=== PATIENT | female | born 1995 | race Caucasian/White ===

== ENCOUNTER 2017-11-09 23:35 | Emergency (ER) | payer OTHER, SELFPAY ==
[2017-11-09 23:35] VITALS: BP 131/98; PULSE 101; RESP 18; TEMP 36.9; O2SAT 100; BMI 22.8
[2017-11-10] VITALS (8 sets, daily range): BP systolic 100–132; BP diastolic 78–83; PULSE 72–101; RESP 14–20; O2SAT 96–100
[2017-11-10 00:15] LABS: Absolute Lymphocyte Count 2.09 X10^3/ul (0.83-4.51); Absolute Neutrophil Count 5.5 X10^3/uL (2.0-7.7); Basophil# 0.02 X10^3/uL; Basophil% 0.2 % (0-1); Eosinophil# 0.08 X10^3/uL; Eosinophils% 0.9 % (0-5); Hematocrit 38.2 % (37-47); Hemoglobin 13.4 g/dl (12.0-15.0); Lymphocyte # 2.09 X10^3/ul (4.0); Lymphocyte % 24.7 % (19-41); Mean Corp Hgb Conc 35.1 g/gl (32-36); Mean Corpuscular Hgb 33.3 pg (27.0-32.0); Mean Corpuscular Volume 94.8 fL (81-99); Mean Platelet Vol. 9.3 fl (6.2-12.0); Monocyte# 0.75 X10^3/uL; Monocyte% 8.9 % (0-10); Neutrophil # 5.51 X10^3/uL (2.7-7.7); Neutrophil % 65.2 % (47-70); Platelet Count 327 K/mm3 (150-450); RBC Distribution Width CV 11.9 % (11.6-14.6); RBC Distribution Width SD 40.8 fl (35.1-43.9); Red Blood Count 4.03 M/mm3 (4.2-5.4); White Blood Count 8.5 K/mm3 (4.4-11.0)
[2017-11-10 00:16] LABS: POSITIVE COUNT NO; POSITIVE DIFFERENTIAL NO; POSITIVE MORPHOLOGY NO
--- NOTE | 2017-11-10 00:24 | ED.RN ---
PT STATES I HAVE THOUGHT ABOUT CUTTING MYSELF. I HAVE ALSO THOUGHT ABOUT TAKING ONE OF MY BOYFRIEND'S GUNS WITHOUT HIM KNOWING IT AND SHOOTING MYSELF. PLEASE DON'T TELL MY BOYFRIEND. DR KANG NOTIFIED OF THE SAME
[2017-11-10 00:29] LABS: Anion Gap 8 (5-15); BUN 9 mg/dL (7-18); BUN/Creat Ratio 10.8 RATIO (10-20); Calcium,Total 8.7 mg/dL (8.5-10.1); Chloride 108 mmol/L (98-107); Creatinine, Serum 0.83 mg/dL (0.55-1.02); EST Glomerular Filtration Rate 89 mL/min (>60); Est Glom Filt Rate - Afr Amer 108 mL/min (>60); Estimated Creatinine Clearance 97.84 ml/min; Glucose 135 mg/dL (74-106); Potassium 3.2 mmol/L (3.5-5.1); Sodium Level 140 mmol/L (136-145)
[2017-11-10 00:35] LABS: Pregnancy, Serum, hCG Quali. NEGATIVE Negative (0-9 Nonpreg)
[2017-11-10 01:07] LABS: Amphetamine Urine VISTA NEGATIVE (<1000 ng/mL); Barbiturate Urine VISTA NEGATIVE (< 200 ng/mL); Benzodiazepine Urine VISTA NEGATIVE (< 200 ng/mL); Cocaine Urine VISTA NEGATIVE (< 300 ng/mL); Ecstacy Urine VISTA NEGATIVE (< 500 ng/mL); Methadone Urine VISTA NEGATIVE (< 300 ng/mL); PCP Urine VISTA NEGATIVE (< 25 ng/mL); THC Urine VISTA NEGATIVE (< 50 ng/mL); Vista UDS pH Range 5
--- NOTE | 2017-11-10 01:48 | ED.VISSUMM ---
- ER Visit Summary Date of Service: 11/10/17 Chief Complaint: Suicidal ideation and anxiety History of Present Illness: The patient is a 22 F who initially just complain of anxiety to me. She states that over the past 2 months she has been increasingly anxious. She states that she has never sought any type of medical care medication for this so came here today. On pressing for history she does admit to suicidal thoughts at times and has thought about cutting herself. However to nursing staff while boyfriend was out of the room she had mentioned that she had thought of getting his gun and shooting herself. She denies any recent medical illness. Physical Examination: Afebrile heart rate 101 vitals otherwise normal Moist mucous membranes Heart regular rhythm tachycardia Lungs are clear Abdomen soft Alert Patient does endorse suicidal thoughts Test Results: CBC BMP notable for potassium 3.2 otherwise normal. negative. Tox and alcohol normal. Emergency Department Course and Treatment: Patient will be evaluated by crisis. Treatment Plan: [] Disposition: Pending crisis evaluation Impression: Suicidal ideation Anxiety This note was generated with [employer] dictation software. It may contain incorrect words, spelling, and punctuation that were not noted in review of the chart prior to signing ED Disposition - Plan for ED Patient: Chief Complaint: Suicidal Referrals: Care Physician,No Primary [Primary Care Provider] -
--- NOTE | 2017-11-10 07:12 | ED.RN ---
ADONAY IS HERE EVALUATING PATIENT.
--- NOTE | 2017-11-10 07:53 | ED.RN ---
ADONAY STATED SHE IS GOING TO TAKE [facility]THING TO [facility] AND THE NEXT SHIFT IS GOING TO WORK ON PLACEMENT.
--- NOTE | 2017-11-10 13:28 | ED.RN ---
CALLED NERY FROM CRISIS. HE STATED WE ARE WAITING FOR [facility] TO CALL US WITH ACCEPTANCE FOR PATIENT AND HE IS GOING TO CALL THEM TO CHECK ON IT AND HE WILL LET US KNOW.
== END 2017-11-10 14:35 ==
PROVIDERS: Emergency Medicine; Emergency Provider Emergency Medicine
DX: F41.9 Anxiety disorder, unspecified (principal); R45.851 Suicidal ideations; J45.909 Unspecified asthma, uncomplicated
CPT/HCPCS: 80048; 80307; 80320; 84703; 85025; 99284; G0480

== ENCOUNTER 2023-11-27 18:19 | Inpatient (IN) | payer OTHER, SELFPAY ==
[2023-11-27] VITALS (23 sets, daily range): BP systolic 119–148; BP diastolic 57–90; PULSE 100–127; RESP 16–18; TEMP 36.8–38.1; O2SAT 99–100
[2023-11-27] MEDS: Lactated Ringers 1,000 ML 999 ML IV (19:04)
[2023-11-27 19:05] LABS: Absolute Lymphocyte Count 2.53 X10^3/uL (0.83-4.51); Absolute Neutrophil Count 11.6 X10^3/uL (2.0-7.7); Basophil# 0.07 X10^3/uL; Basophil% 0.4 % (0-1); Eosinophil# 2.08 X10^3/uL; Eosinophils% 11.8 % (0-5); Hematocrit 38.2 % (37-47); Hemoglobin 12.8 g/dL (12.0-15.0); Lymphocyte # 2.53 X10^3/ul (0.83-4.51); Lymphocyte % 14.4 % (19-41); Mean Corp Hgb Conc 33.5 g/dL (32-36); Mean Corpuscular Hgb 32.7 pg (27.0-32.0); Mean Corpuscular Volume 97.7 fL (81-99); Mean Platelet Vol. 10.7 fl (6.2-12.0); Monocyte# 1.21 X10^3/uL; Monocyte% 6.9 % (0-10); NRBC Flagged by Analyzer 0 % (0-5); Neutrophil # 11.57 X10^3/uL (2.7-7.7); Neutrophil % 65.9 % (47-70); POSITIVE DIFFERENTIAL YES; Platelet Count 340 K/mm3 (150-450); RBC Distribution Width SD 43.6 fl (35.1-43.9); Red Blood Count 3.91 M/mm3 (4.2-5.4); White Blood Count 17.6 K/mm3 (4.4-11.0)
[2023-11-27 19:15] LABS: Differential Indicated SCAN CRITERIA MET
[2023-11-27 19:38] LABS: Syphilis Antibodies Non-reactive
[2023-11-27 19:53] LABS: Anisocytosis 1+; Macrocytosis 1+; Platelet Estimate ADEQUATE (ADEQ); Red Cell Morphology N CHROM NORMAL (NORM C&C)
[2023-11-27] MEDS: Lactated Ringers 1,000 ML 200 ML IV (20:04)
[2023-11-27] MEDS: fentaNYL-bupivacaine (epidural) 100 ML BAG EPIDURAL (20:08)
[2023-11-27] MEDS: Mag Hydrox/Al Hydrox/Simeth 30 ML UDC PO (22:29)
[2023-11-28] VITALS (27 sets, daily range): BP systolic 104–141; BP diastolic 53–90; PULSE 83–123; RESP 16–18; TEMP 36.8–37.8; O2SAT 97–100
--- NOTE | 2023-11-28 00:19 | PCM.HP.OB ---
HPI - General General Date of Admission: 11/27/23 HPI Narrative KHOI BROWN, is a 28 F who presents at 40w2d with KEVYN:11/26/23 in early labor. NST with late deceleration and decision for admission. Maternal Data Information KEVYN Calculator Estimated Delivery Date Method Current WG Current Estimate 11/26/23 Manual 40w 2d PFSH PFSH Medical History (Updated 11/28/23 @ 00:40 by Paola Bonilla CNM) Cervical polyp Asthma Depression Anxiety Home Medications ?Medication ?Instructions ?Recorded ?Last Taken ?Type albuterol sulfate 90 mcg/actuation 1 puff inhalation Q6H PRN PRN Sob 11/09/17 11/23/23 History aerosol inhaler (Ventolin HFA) &/Or Wheezing aspirin 81 mg tablet,delayed 81 mg PO DAILY prevent pre-e 11/27/23 11/27/23 History release (Adult Low Dose Aspirin) cetirizine 10 mg tablet (24Hour 10 mg PO DAILY PRN allergies 11/27/23 11/27/23 History Allergy) famotidine 20 mg tablet (Pepcid) 25 mg PO DAILY heartburn 11/27/23 11/26/23 History vit no.95-ferrous 1 tab PO DAILY 11/27/23 11/27/23 History fumarate 28 mg-folic acid 800 mcg tablet () Allergy/AdvReac Type Severity Reaction Status Date / Time peanut Allergy Severe Anaphylaxis Verified 11/27/23 23:02 pistachio nut AdvReac Mild Nausea Verified 11/27/23 23:02 Social History Smoking Status: Never smoker History Elective abortions Hx Para 0 Spontaneous abortions Hx # Term Pregnancies Ectopic pregnancies Hx # Pregnancies Multiple births # of living children NST FHR Rate Baby A Baseline: 155 Variability:: Moderate Accelerations:: 15 x 15 Decelerations:: None Vital Signs Vital Signs Vital Signs: 11/27/23 17:11 11/27/23 17:11 11/27/23 17:12 Temperature Temperature Source Pulse Rate 105 H Respiratory Rate Blood Pressure 134/90 H BP Systolic 134 BP Diastolic 90 Pulse Ox 99 11/27/23 17:12 11/27/23 17:12 11/27/23 17:12 Temperature Temperature Source Temporal Pulse Rate 100 Respiratory Rate 16 Blood Pressure BP Systolic BP Diastolic Pulse Ox 11/27/23 17:12 11/27/23 19:52 11/27/23 19:52 Temperature 100.5 F H Temperature Source Pulse Rate 102 H Respiratory Rate Blood Pressure BP Systolic BP Diastolic Pulse Ox 100 11/27/23 19:53 11/27/23 19:53 11/27/23 19:53 Temperature Temperature Source Temporal Pulse Rate 108 H Respiratory Rate Blood Pressure 148/84 H BP Systolic 148 BP Diastolic 84 Pulse Ox 11/27/23 19:53 11/27/23 19:53 11/27/23 19:57 Temperature 98.4 F Temperature Source Pulse Rate 111 H Respiratory Rate 18 Blood Pressure BP Systolic BP Diastolic Pulse Ox 11/27/23 19:57 11/27/23 19:58 11/27/23 19:58 Temperature Temperature Source Pulse Rate 114 H Respiratory Rate Blood Pressure 137/79 H BP Systolic 137 BP Diastolic 79 Pulse Ox 100 11/27/23 19:58 11/27/23 20:02 11/27/23 20:02 Temperature Temperature Source Pulse Rate 107 H Respiratory Rate 18 Blood Pressure BP Systolic BP Diastolic Pulse Ox 100 11/27/23 20:04 11/27/23 20:04 11/27/23 20:04 Temperature Temperature Source Pulse Rate 107 H Respiratory Rate 18 Blood Pressure 140/76 H BP Systolic 140 BP Diastolic 76 Pulse Ox 11/27/23 20:07 11/27/23 20:07 11/27/23 20:08 Temperature Temperature Source Pulse Rate 110 H Respiratory Rate Blood Pressure 130/65 H BP Systolic 130 BP Diastolic 65 Pulse Ox 100 11/27/23 20:08 11/27/23 20:12 11/27/23 20:12 Temperature Temperature Source Pulse Rate 117 H 114 H Respiratory Rate Blood Pressure BP Systolic BP Diastolic Pulse Ox 99 11/27/23 20:13 11/27/23 20:13 11/27/23 20:14 Temperature Temperature Source Pulse Rate 123 H Respiratory Rate 16 Blood Pressure 120/57 L BP Systolic 120 BP Diastolic 57 Pulse Ox 11/27/23 20:17 11/27/23 20:17 11/27/23 20:17 Temperature Temperature Source Pulse Rate 118 H 114 H Respiratory Rate Blood Pressure 127/58 H BP Systolic 127 BP Diastolic 58 Pulse Ox 11/27/23 20:17 11/27/23 20:17 11/27/23 20:22 Temperature Temperature Source Pulse Rate Respiratory Rate 16 Blood Pressure 123/70 H BP Systolic 123 BP Diastolic 70 Pulse Ox 100 07/13/24 20:22 11/27/23 20:22 11/27/23 20:27 Temperature Temperature Source Pulse Rate 106 H 117 H Respiratory Rate Blood Pressure BP Systolic BP Diastolic Pulse Ox 100 11/27/23 20:27 11/27/23 20:28 11/27/23 20:28 Temperature Temperature Source Pulse Rate 101 H Respiratory Rate Blood Pressure 131/65 H BP Systolic 131 BP Diastolic 65 Pulse Ox 100 11/27/23 20:28 11/27/23 20:33 11/27/23 20:33 Temperature Temperature Source Pulse Rate 105 H Respiratory Rate 16 Blood Pressure 134/68 H BP Systolic 134 BP Diastolic 68 Pulse Ox 11/27/23 20:33 11/27/23 20:38 11/27/23 20:38 Temperature Temperature Source Pulse Rate 127 H Respiratory Rate 16 Blood Pressure 130/61 H BP Systolic 130 BP Diastolic 61 Pulse Ox 11/27/23 20:43 11/27/23 20:43 11/27/23 20:43 Temperature Temperature Source Pulse Rate 105 H Respiratory Rate 18 Blood Pressure 145/68 H BP Systolic 145 BP Diastolic 68 Pulse Ox 11/27/23 21:14 11/27/23 21:14 11/27/23 21:14 Temperature Temperature Source Pulse Rate 114 H Respiratory Rate 16 Blood Pressure 133/74 H BP Systolic 133 BP Diastolic 74 Pulse Ox 11/27/23 21:46 11/27/23 21:46 11/27/23 21:46 Temperature Temperature Source Temporal Pulse Rate 105 H Respiratory Rate Blood Pressure 119/69 BP Systolic 119 BP Diastolic 69 Pulse Ox 11/27/23 21:46 11/27/23 21:46 11/27/23 23:35 Temperature 98.7 F Temperature Source Pulse Rate Respiratory Rate 18 Blood Pressure 132/77 H BP Systolic 132 BP Diastolic 77 Pulse Ox 11/27/23 23:35 11/27/23 23:35 11/27/23 23:35 Temperature Temperature Source Temporal Pulse Rate 104 H Respiratory Rate Blood Pressure BP Systolic BP Diastolic Pulse Ox 99 11/27/23 23:35 Temperature 98.2 F Temperature Source Pulse Rate Respiratory Rate Blood Pressure BP Systolic BP Diastolic Pulse Ox Weight Weight: 186 lb 2 oz Body Mass Index (BMI) 30.0 Physical Exam Const alert and oriented x3 General Appearance: cooperative Orientation / Consciousness: awake, oriented to person, oriented to place and oriented to time Exam Limitations: no limitations HEENT normocephalic Head and Scalp: normal to inspection, normocephalic and atraumatic Face and Sinus: normal facial exam Eyes General Eye: normal appearance of both eyes Neck full ROM Chest Chest: symmetrical chest wall rise Resp normal respiratory effort and normal air movement Auscultation: clear to auscultation bilaterally Cardio regular rate, regular rhythm, S1 normal heart sound, S2 normal heart sound, no murmurs, no rub, no gallops and no clicks GI normal to inspection, nondistended, normoactive bowel sounds and non-tender appearance of the vagina normal Bladder / Kidney Exam: no CVA tenderness Manual OB Exam: estimated gestational size appropriate, presentation cephalic, dilated 5cm, effaced 80%, station -1 and other AROM clear fluid Back/Spine normal ROM Extremity normal to inspection and full ROM Skin no rashes or lesions noted Neuro oriented x3, CN's II-XII intact bilaterally and moves all extremities Sensorium / Orientation: awake, alert and oriented to person Motor Exam: clonus absent Deep Tendon Reflexes: Rt Patellar (L4): 2+ and Lt Patellar (L4): 2+ Labs Labs Labs: Blood Type A NEGATIVE Antibody Screen NEGATIVE Hct 38.2 % (37-47) Hgb 12.8 g/dL (12.0-15.0) Syphilis Total Ab Non-reactive GBS negative A negative, antibody screen negative RPR nonreactive 1hr GCT nml Rubella Immune Hep C negative HBsAG negative GC/CT negative Assessment & Plan (1) 40 weeks gestation of : (2) Active labor at term: (3) 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
[2023-11-28] MEDS: fentaNYL-bupivacaine (epidural) 100 ML BAG EPIDURAL ×2 (00:24→05:17)
--- NOTE | 2023-11-28 00:41 | PN.OBGYN_ITS ---
Subjective Subjective Resting in bed, comfortable with epidural. Objective Data Objective Data Vital Signs: Vital Signs Temp Pulse Resp BP Pulse Ox 98.2 F 104 H 18 132/77 H 99 11/27/23 23:35 11/27/23 23:35 11/27/23 21:46 11/27/23 23:35 11/27/23 23:35 Weight: 186 lb 2 oz Body Mass Index (BMI) 30.0 Intake & Output: Intake and Output for Last 24 Hours 11/26/23 11/27/23 11/28/23 23:59 23:59 23:59 Intake Total 1300 / 1300 Output Total 50 / 50 Balance 1250 / 1250 Lab / Micro Data 11/27/23 18:50 Labs: Laboratory Results - last 24 hr 11/27/23 18:50: WBC 17.6 H, RBC 3.91 L, Hgb 12.8, Hct 38.2, MCV 97.7, MCH 32.7 H , MCHC 33.5, RDW Std Deviation 43.6, RDW Coeff of [place]af[place] 12.0, Plt Count 340, MPV 10.7, Immature Gran % (Auto) 0.600, Neut % (Auto) 65.9, Lymph % (Auto) 14.4 L, [place] % (Auto) 6.9, Eos % (Auto) 11.8 H, Baso % (Auto) 0.4, Absolute Neuts (auto) 11.6 H, Absolute Lymphs (auto) 2.53, Nucleated RBC % 0, Differential Comment SEE COMMENT, Platelet Estimate ADEQUATE, RBC Morphology N CHROM, Anisocytosis 1+, Macrocytosis 1+, Syphilis Total Ab Non-reactive, Blood Type A NEGATIVE, Antibody Screen NEGATIVE Micro: Microbiology 11/27/23 21:03 Mucosa - Nasopharyngeal SARS-CoV-2, Influenza & RSV (PCR) - Final Physical Exam Narrative: IUPC placed 5/80%/-1. Moderate amount of fluid returned, meconium NST FHR Rate Baby A Baseline: 165 Variability:: Minimal Accelerations:: 15 x 15 Decelerations:: Late and Variable FHR Category:: Category II Uterine Activity:: every 2-3 minutes Assessment & Plan (1) Active labor at term: (2) 40 weeks gestation of : (3) Category II heart rate tracing during labor and delivery: PLAN: Plan 1) IUPC placed, will start amnioinfusion, 300ml bolus, 100ml per hour 2) Positional changes 3) IV fluid bolus 4) present on unit, reviewed tracing, and agreed with plan.
[2023-11-28] MEDS: LACTATED RINGERS 500 ML 999 ML IV ×2 (00:59→05:54)
[2023-11-28] MEDS: Amnioinfusion- 0.9% NS 1,000 ML IV.SOLN. 1000 ML INTRA-UTER (01:00)
[2023-11-28] MEDS: Lactated Ringers 1,000 ML 200 ML IV (01:29)
[2023-11-28] MEDS: Mag Hydrox/Al Hydrox/Simeth 30 ML UDC PO (03:17)
[2023-11-28] MEDS: Ondansetron 4 MG/2 ML Vial IV (05:26)
[2023-11-28] MEDS: Acetaminophen 500 MG Tablet PO (06:11)
[2023-11-28] MEDS: Oxytocin 15 Units/NS 250ml 15 UNITS/250 ML IV.SOLN 334 UNITS IV (08:18)
--- NOTE | 2023-11-28 08:45 | EX.PCM.OBRPT ---
Assessment & Plan (1) Vaginal delivery: (2) Thick meconium stained amniotic fluid: (3) Second degree perineal laceration: Maternal Data Information KEVYN Calculator Estimated Delivery Date Method Current WG Current Estimate 11/26/23 Manual 40w 2d Vaginal Delivery Maternal Presentation Maternal Presentation: Active Labor Operative Information Date of Procedure: 11/28/23 Pre-Operative Diagnosis: Active Labor Post-Operative Diagnosis: , 2nd degree perineal laceration Surgery / Procedure Performed: Spontaneous Vaginal Delivery Type of Anesthesia: Epidural Estimated Blood Loss: 400ml Time of Delivery: 08:11 Findings Description of Procedure: Progressed to complete with urge to push. Epidural for pain management. of viable male infant over intact perineum. APGARS 8,9 respectively. head delivered with body immediately forthcoming. Placed on maternal abdomen, strong cry. Mouth and nares suctioned for secretions. Pitocin started for active 3rd stage management. Cord doubly clamped and cut by FOB after pulsations ceased, delayed cord clamping. Placenta delivered intact via goode, 3 vessel cord intact. Perineum inspected and revealed 2nd degree perineal laceration. Repaired with 3.0 vicryl rapide and lidocaine. Fundus firm and hemostasis achieved. EBL 400ml. Mom and baby stable, planning to breastfeed. Family bonding well. notified of delivery. Presentation: Vertex and RENETTA Amniotic Membrane Rupture Type: Artificial Amniotic Fluid Description: Thick meconium Placental Delivery Description: Spontaneous Placenta Disposition: [facility] Cord Vessel Description: 3 Vessels Cord Entanglement: Around neck x 1, loose A Gender: Male (1 minute): 8 (5 minute): 9 Delayed Cord Clamping: Yes Post Vaginal Delivery Medications Given After Delivery: IV Pitocin Laceration: Perineal Extension/lac and 2nd degree Complication Complications: None
[2023-11-28] MEDS: Oxytocin 15 Units/NS 250ml 15 UNITS/250 ML IV.SOLN 83 UNITS IV (08:55)
--- NOTE | 2023-11-28 09:57 | NURSING ---
Unable to obtain gases or cord blood. Will collect cord blood from baby during recovery.
[2023-11-28] MEDS: Acetaminophen 500 MG Tablet 1000 MG PO ×2 (10:23→20:57)
[2023-11-28] MEDS: Benzocaine/Lanolin/Aloe Vera 1 SPRAY EACH TOPICAL (16:55)
[2023-11-28] MEDS: Ibuprofen 600 MG Tablet PO (17:03)
[2023-11-28] MEDS: 0.9% Saline Lock 10 ML Syringe IV (20:58)
[2023-11-29 00:05] VITALS: BP 130/82; PULSE 97; RESP 16; TEMP 36.6; O2SAT 98
[2023-11-29 03:03] VITALS: BP 126/79; PULSE 80; RESP 16; TEMP 36.5; O2SAT 98
[2023-11-29] MEDS: 0.9% Saline Lock 10 ML Syringe IV (06:18)
[2023-11-29 06:28] LABS: Absolute Lymphocyte Count 2.91 X10^3/uL (0.83-4.51); Absolute Neutrophil Count 12.1 X10^3/uL (2.0-7.7); Basophil# 0.05 X10^3/uL; Basophil% 0.3 % (0-1); Eosinophil# 1.44 X10^3/uL; Eosinophils% 8.1 % (0-5); Hematocrit 28.9 % (37-47); Hemoglobin 9.8 g/dL (12.0-15.0); Lymphocyte # 2.91 X10^3/ul (0.83-4.51); Lymphocyte % 16.4 % (19-41); Mean Corp Hgb Conc 33.9 g/dL (32-36); Mean Corpuscular Hgb 33.6 pg (27.0-32.0); Mean Platelet Vol. 9.8 fl (6.2-12.0); Monocyte% 6.2 % (0-10); NRBC Flagged by Analyzer 0 % (0-5); Neutrophil # 12.13 X10^3/uL (2.7-7.7); Neutrophil % 68.3 % (47-70); Platelet Count 254 K/mm3 (150-450); RBC Distribution Width CV 12.4 % (11.6-14.6); Red Blood Count 2.92 M/mm3 (4.2-5.4); White Blood Count 17.8 K/mm3 (4.4-11.0)
[2023-11-29] MEDS: Acetaminophen 500 MG Tablet 1000 MG PO (07:27)
--- NOTE | 2023-11-29 08:30 | PN.OBGYN_ITS ---
Subjective Subjective Doing well. Ambulating without difficulty. Voiding without difficulty. No BECKETT no vision changes. Breast feeding. Objective Data Objective Data Vital Signs: Vital Signs Temp Pulse Resp BP Pulse Ox O2 Del Method 97.7 F L 80 16 126/79 H 98 Room Air 11/29/23 03:03 11/29/23 03:03 11/29/23 03:03 11/29/23 03:03 11/29/23 03:03 11/29/23 03:03 Oxygen Delivery Method Room Air Weight: 84.425 kg Body Mass Index (BMI) 30.0 Intake & Output: Intake and Output for Last 24 Hours 11/27/23 11/28/23 11/29/23 23:59 23:59 23:59 Intake Total 1300 / 1300 3755.97 / 3755.97 Output Total 50 / 50 2300 / 2300 Balance 1250 / 1250 1455.97 / 1455.97 Lab / Micro Data 11/29/23 06:20 Labs: Laboratory Results - last 24 hr 11/29/23 06:20: WBC 17.8 H, RBC 2.92 L, Hgb 9.8 L, Hct 28.9 L, MCV 99.0, MCH 33.6 H, MCHC 33.9, RDW Std Deviation 45.0 H, RDW Coeff of [place]af[place] 12.4, Plt Count 254, MPV 9.8, Immature Gran % (Auto) 0.700, Neut % (Auto) 68.3, Lymph % (Auto) 16.4 L, [place] % (Auto) 6.2, Eos % (Auto) 8.1 H, Baso % (Auto) 0.3, Absolute Neuts (auto) 12.1 H, Absolute Lymphs (auto) 2.91, Nucleated RBC % 0 Micro: Microbiology 11/27/23 21:03 Mucosa - Nasopharyngeal SARS-CoV-2, Influenza & RSV (PCR) - Final Physical Exam Const alert and no apparent distress Narrative: Fundus firm, below umbilicus. Assessment & Plan (1) Vaginal delivery: (2) Elevated BP without diagnosis of hypertension: PLAN: Plan Needs BP check in 72 hours.
--- NOTE | 2023-11-29 08:35 | DS.PCM_ITS ---
Providers Date of Admission: 11/27/23 Date of Discharge: 11/29/23 Primary Care Physician: No Primary Care Phys Reason For Visit: RULE OUT LABOR Diagnosis Discharge Diagnosis (1) Vaginal delivery: Status: Acute Code(s): O80 - Encounter for full-term uncomplicated delivery (2) Elevated BP without diagnosis of hypertension: Status: Acute Code(s): R03.0 - Elevated blood-pressure reading, without diagnosis of hypertension Plan Needs BP check in 72 hours. Medications at Discharge Home Medications albuterol sulfate 90 mcg/actuation aerosol inhaler (Ventolin HFA) 1 puff inhalation Q6H PRN PRN Sob &/Or Wheezing 11/09/17 cetirizine 10 mg tablet (24Hour Allergy) 10 mg PO DAILY PRN allergies 11/27/23 famotidine 20 mg tablet (Pepcid) 25 mg PO DAILY heartburn 11/27/23 vit no.95-ferrous fumarate 28 mg-folic acid 800 mcg tablet () 1 tab PO DAILY 11/27/23 Hospital Course Operations None Procedures None Summary of Care Provided Minutes Spent on Discharge: 20 Hospital Course: Admitted for labor. Normal uncomplicated. Intermittent elevated BP . No symptoms. Breast feeding Physical Exam Const alert and no apparent distress Narrative: Fundus firm, below umbilicus. Weight / BMI Weight Weight: 84.425 kg Body Mass Index (BMI) 30.0 ABG / Lab / Microbiology Data 11/29/23 06:20 Laboratory: Laboratory Results - last 24 hr 11/29/23 06:20: WBC 17.8 H, RBC 2.92 L, Hgb 9.8 L, Hct 28.9 L, MCV 99.0, MCH 33.6 H, MCHC 33.9, RDW Std Deviation 45.0 H, RDW Coeff of [place] 12.4, Plt Count 254, MPV 9.8, Immature Gran % (Auto) 0.700, Neut % (Auto) 68.3, Lymph % (Auto) 16.4 L, [place] % (Auto) 6.2, Eos % (Auto) 8.1 H, Baso % (Auto) 0.3, Absolute Neuts (auto) 12.1 H, Absolute Lymphs (auto) 2.91, Nucleated RBC % 0 Microbiology: Microbiology 11/27/23 21:03 Mucosa - Nasopharyngeal SARS-CoV-2, Influenza & RSV (PCR) - Final D/C Instructions Discharge Diet: No restrictions May resume sexual activity in: 6 weeks Call your doctor if your incision/area has: Sudden Increased Bleeding and Foul Smelling Discharge Call your doctor if you observe: Fever of 101 or Higher and Inability to urinate Please Follow Up With: Mary Kate Nicholas MD When: 72 hour BP check Follow up with our office in 1-2 and 6 weeks or as needed. [phone] Meaningful Use Info Meaningful Use Meaningful Use Diagnoses (Choose all that apply): None applicable Ischemic Stroke Statin Dosing Therapy Reference: STATIN DOSE THERAPY REFERENCE: * Patients > 75 years receive moderate or high dose statin therapy. * Patients 75 years or YOUNGER should receive HIGH intensity statin dose unless contraindicated. You will be required to document reason for non-treatment if statin daily dose does not meet guidelines. HIGH DOSE STATIN THERAPY DAILY Atorvastatin > than or = to 40 mg Rosuvastatin > than or = to 20 mg Amlodipine + Atorvastatin > than or = to 2.5/40 mg Ezetimibe + Simvastatin 10/80 mg Simvastatin 80mg Discharge Plan Admission Admit Date/Time: 11/27/23 18:19 Primary Reason for Your Visit: labor and delivery Attending Provider: Paola Bonilla Primary Care Provider: Care Physician,Marsha Primary Discharge Orders/Prescriptions Prescriptions: Continued albuterol sulfate [Ventolin HFA] 1 INHALER inhaler 1 puff inhalation Q6H PRN PRN (Reason: Sob &/Or Wheezing) PNV cmb#95-ferrous fumarate-FA [] 28 mg iron- 800 mcg tablet 1 tab PO DAILY cetirizine [24Hour Allergy] 10 mg tablet 10 mg PO DAILY PRN (Reason: allergies) famotidine [Pepcid] 20 mg tablet 25 mg PO DAILY Discontinued aspirin [Adult Low Dose Aspirin] 81 mg tablet,delayed release (DR/EC) 81 mg PO DAILY Referrals / Follow Up: Care Physician,No Primary [Primary Care Provider] - Disposition Disposition (needs filled in before D/C Order can be placed): Home, Self Care
[2023-11-29 08:42] VITALS: BP 108/63; PULSE 93; RESP 17; TEMP 36.6; O2SAT 98
[2023-11-29 14:00] VITALS: BP 128/79; PULSE 89; RESP 18; TEMP 36.6
--- NOTE | 2023-11-29 14:07 | CASEMGMT ---
Social Work Assessment Labor and Delivery Unit Patient Address:[address] [place] [id number] Phone number: [phone] Date of Referral: 11/28/23 Time of Referral:?1955 Referred By: Paola Bonilla Date of Intervention: ?11/29/23? Time of Intervention:? 1339 Reason for Referral:? anxiety and depression Sw completed chart review and acknowledges social work consult due to maternal mental health. Sw presented to bedside and introduced self to mother of baby (MOB- Gisela) and father of baby (FOB- Alex) and explained sw role. Sw completed psychosocial assessment. History obtained from: medical records, MOB and FOB Household composition: Currently residing in the family home is MOB and FOB. Parents deny any issues or concerns with current housing. Patient's parent/guardian status:? ?GAIL states that she and JOSE have been together for 6-7 years, they met at the gym. No issues or concerns reported of domestic violence or intimate partner violence. Medical History: ?GAIL is 28 year old female who is 1, para 0- now 1 following labor and delivery of . GAIL received routine care during with [facility]. GAIL presented to hospital on 11/28/23 and delivered baby via vaginal delivery at 40 weeks gestation. Baby boy, named Jc, was born weighing 8lb 13oz with apgars of 8 and 9 at one and five minutes of life respectfully. GAIL states that she is breast feeding. Baby will be followed by Dr. Kaylynn Kate for pediatrics. Educational Status:? Both parents graduated from high school, GAIL obtained a masters degree and JOSE went to clinical nurse manager school. No concerns with reading, learning or comprehension. Financial Status: Both parents are gainfully employed outside of the home. 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 Supplies:?? Parents have obtained all necessary baby supplies, including: car seat, safe sleep space, clothes, diapers and wipes. Childcare/Caregiver(s):? GAIL will be the primary caregiver during her maternity leave, along with JOSE when he is not at work. When both parents are working they have childcare arranged with both grandpas. Transportation:??Both parents have their drivers license and reliable means of transportation. No barriers at this time. Programs/Agencies Involved: ???Parents deny being connected to any community resources that assist them financially. MOB denies being connected to any mental health services and supports. Children Services/Legal Issues:??? No history of children services involvement, no issues or concerns warranting referral to be made at this time. Behavioral Health Issues: ??Mental Health History: GAIL states that she has been diagnosed with anxiety and depression. GAIL reports that about 5 years ago she graduated college and moved back in with her parents temporarily. MOB states that they were not the most supportive people to live with and were constantly hounding her about finding employment and moving out. MOB states that at that time she also did not have a lot of friends around because they were still at college or moved out of town. MOB states that she has not struggled with anxiety or depression since that time, but is nervous about experiencing depression following delivery. FOB denies mental health diagnoses. ??? Substance Use History: Parents deny substance use prior to and during . MOB states that she drinks socially outside of . Family History:??No family history of substance use or addiction issues, no significant mental health diagnoses??? Drug Screens: ??No drug screens observed during chart review. Family/Social Stressors:? Parents deny any issues or concerns. GAIL states that she feels fine at this time, but is worried about experiencing baby blues or symptoms. Rachel provided MOB with list of counseling agencies that are local to her, along with a list of online mental health resources. Rachel encouraged parents to have open and honest conversations about what MOB is feeling/ experiencing, even if that means that MOB needs to allow herself to be vulnerable and talk about what is going on. MOB expressed understanding. FOGideon stated that he believes he would be able to recognize if MOB were struggling with her mental health and would know how to help and support her. Support Systems: MOB states that her siblings and paternal grandparents are the most supportive at this time. Depression/Shaken Baby/Safe Sleeping:? Rachel educated parents to signs and symptoms of mood and anxiety disorders to be on the lookout for during this period. Parents expressed understanding. Sw educated parents to shaken baby prevention and ABCs of safe sleep. Parents expressed understanding. ASSESSMENT:? MOB and baby are admitted following labor and delivery. MOB with mental health history (anxiety and depression) and is not currently prescribed any medication to help manage her symptoms. MOB states that her mental health has been manageable for the past five years, but she is worried about experiencing symptoms during this time. Parents were receptive to information, education and resources provided. Parents were also open to talking to each other and formulating a plan of action as to when to seek professional help for MOB if she were to continue to struggle, or if her symptoms were to get worse (if she does experience symptoms). Parents have obtained all necessary baby supplies and have some natural resources in place. PLAN:? MOB and baby to be discharged when medically ready. ?No other services requested or indicated. Leonor Scott, SUSTAIN ENGINEER, TIMBER HARVESTER OPERATOR
== END 2023-11-29 15:50 | disposition home or self-care (01) | DRG 807 ==
LOC: WP 18:23
PROVIDERS: Admitting Provider Advanced Practice Midwife; Visit Provider Advanced Practice Midwife
DX: O76 Abnormality in fetal heart rate and rhythm complicating labor and delivery (principal); Z37.0 Single live birth; R03.0 Elevated blood-pressure reading, without diagnosis of hypertension; O48.0 Post-term pregnancy; O69.81X0 Labor and delivery complicated by cord around neck, without compression, not applicable or unspecified; O70.1 Second degree perineal laceration during delivery; O77.0 Labor and delivery complicated by meconium in amniotic fluid; O99.892 Other specified diseases and conditions complicating childbirth; Z3A.40 40 weeks gestation of pregnancy; Z79.82 Long term (current) use of aspirin; Z79.899 Other long term (current) drug therapy
CPT/HCPCS: 59025; 59050; 85025; 86780; 86850; 86900; 86901; 87631; 99221; J7030; J7120; A4216; G0378; J2405

== ENCOUNTER 2024-05-08 10:30 | Outpatient (RCR) | payer OTHER, SELFPAY ==
--- NOTE | 2024-02-08 16:26 | HP.PTEVAL_ITS ---
Patient's Visit Information Visit Information Visit Information: KHOI BROWN is a 28 year old F referred to Physical Therapy by Dr. Uzma Kim MD with a diagnosis of Pain and Pelvic Pain. Date of Evaluation: 02/07/24 Physical Therapist: Trudy Duke PT, Cert MDT Visit Plan Frequency: 2-3x /Week Duration: 6-8 Plan: PELVIC FLOOR DOWN TRAINING AND RELAXATION EDUCATION INCLUDING STM NEEDED. POSTURE TRAINING. DIASTASIS RECTI EDUCATION AND MANAGEMENT. CORE STRENGTHENING. LE ROM/STRETCHING. HEALTHY BLADDER HABIT EDUCATION. TRAINING IN ABDOMINAL CAVITY PRESSURE MGMT WITH ADL'S. 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 RTW PLANNED IN TWO WEEKS 02/21/24. HOBBIES: SOCCER, LIFTING, VOLLEYBALL Disability: NO Present symptoms: INTERMITTENT BURNING AND THROBBING FROM VAGINAL AREA TO BUTTOCKS. A LITTLE BIT OF BACK PAIN WITH SQUATTING AND KYRGYZ LIFTS (STARTED AT 6 WKS POST DELIVERY). PATIENT REPORTS SHE NOTICED WHILE RUNNING THAT TWISTING HURTS HER BACK A LITTLE BIT TOO NOW. Present since: SINCE DELIVERY OF BABY BOY 11/29/23. Pain Scale: WORST 7/10, LEAST 0/10 Currently: 5/10 Is it getting better, worse or staying the same: STAYING THE SAME OVER ALL BUT THE PAIN IS WORSE AFTER WORKOUTS. Commenced as a result of: DELIVERY Symptoms at onset: MORE CONSTANT AND SEVERE IN VAGINAL AREA AND NOW MORE TOWARDS BUTT HOLE. Worse: ACTIVITY, WALKING OVER 2 HOURS, WEIGHT LIFTING WITH LEGS - PAIN LIMITED, HARD TO GO ON RUNS (RAN 2 MILES YESTERDAY AND DID OK YESTERDAY BUT HURT AFTER). LIFTING WITH ARMS TOO (LIFTS AT [facility] IN [place]), SOMETIMES OK DURING ACTIVITY AND THEN THE PAIN COMES AFTER. JUST SITTING CAN CAUSE PAIN TOO - THE BURNING. Better: ICE. LYING DOWN IS THE MOST COMFORTABLE POSITION. Disturbed sleep: THE PAIN DOES NOT WAKE HER UP AT NIGHT. PRETTY GOOD AT NIGHT. GETTING UP TO GO TO THE BATHROOM 0-1 TIMES AT NIGHT. Previous history/Previous treatment: PATIENT DENIES ANY HISTORY OF BACK, HIP, VAGINAL OR RECTAL AREA PAIN PRIOR TO DELIVERY. NO HISTORY OF UI. Treatment this episode: NO COMPLICATIONS DURING DELIVERY THAT PATIENT IS AWARE OF OTHER THAN 2ND DEGREE TEAR AND STITCHES. Coughing/sneezing: DENIES PAIN. DENIES UI. Gait: PAIN LIMITED IF WALKING MORE THAN ABOUT TWO HOURS. DENIES LIMPING OR CHANGE IN GAIT SHORT TIMES AND DISTANCES. How long can you delay the need to urinate: LONG NEEDED. Prolapse (Falling out feeling): NO Frequency of Urination: 3-5 TIMES A DAY. Ability to stop urine flow: PARTIALLY Ability to initiate urine stream: YES - NO DIFFICULTY Dyspareunia: HAS NOT HAD INTERCOURSE SINCE DELIVERY OF BABY. Bowel Incontinence: NO Accidents: NO Unexplained weight loss: NO Imaging: NO PMH/Recent major surgery: ASTHMA, DEPRESSION, ANXIETY OTHER: CURRENTLY . TRIED RESTING AND THE PAIN DID NOT GET BETTER (01/05/24 TO 01/12/24). Objective Objective: Sitting/Standing Posture: GOOD. NORMAL LORDOSIS AND NO RELEVANT LATERAL SHIFT. Other Observations: PATIENT APPEARS TEARFUL SEVERAL TIMES DURING EVALUATION AND EXPRESSING CONCERN ABOUT BEING ABLE TO TOLERATE GOING BACK TO WORK IN TWO WKS. Sensory deficit: RAOUL LE LIGHT TOUCH SENSATION IS GROSSLY INTACT AND SYMMETRICAL ROM deficit: RAOUL HS, HIP ROTATOR AND CALF TIGHTNESS. Motor deficit: RAOUL LE'S 5/5 WITH MMT'ING. PELVIC FLOOR STRENGTH 4/5 X 7 SEC X 6 REPS WITH INTERNAL MANUAL VAGINAL TESTING. PATIENT DENIES PAIN DURING AND AFTER TESTING. PATIENT HAD C/O PELVIC FLOOR PAIN AT THE START OF SUBJECTIVE PORTION OF THE EVALUATION BUT NOT BEFORE OR AFTER OBJECTIVE TESTING OF PELVIC FLOOR. Dural Signs: NEGATIVE RAOUL LE'S. Lumbar mvmt loss: flex - MIN TO MOD ext - MOD - P BACK PAIN - NW R SG - MIN L SG - MIN Core strength: FAIR. APPROX 2 FINGER WIDTH DIASTASIS RECTI PALPABLE ABOVE AND BELOW NAVEL. Palpation: NO PELVIC FLOOR TENDERNESS, TRIGGER POINTS OR HIGH TONE WITH INTERNAL MANUAL VAGINAL PALPATION. FUNCTIONAL SCREEN: Incontinence Impact Questionnaire Score: 0 Urogenital Distress Inventory Score: 4 Goals Goal 1:: DECREASE C/O PELVIC FLOOR REGION PAIN BY AT LEAST 80% TO EASE ADL'S. Goal Time Frame: 6-8 Weeks Goal 2:: PATIENT WILL BE INDEP WITH APPROPRIATE MANAGEMENT OF DIASTASIS RECTI. Goal Time Frame: 8-12 Weeks Goal 3:: PATIENT WILL MANAGE INTRAABDOMINAL PRESSURE APPROPRIATELY DURING ADL'S. Goal Time Frame: 6-8 Weeks Goal 4:: PATIENT WILL BE ABLE TO HAVE SEXUAL RELATIONS WITH HER WITHOUT PAIN. Goal Time Frame: 4-6 Weeks Goal 5:: NORMALIZE VOIDING FREQUENCEY TO EVERY 3-4 HOURS. Goal Time Frame: 2-4 Weeks Goal 6:: PATIENT WILL BE INDEP WITH A HEP/HOME INSTRUCTIONS FOR CONTINUED IMPROVEMENT ONCE FORMAL PHYSICAL THERAPY CONCLUDES. Goal Time Frame: 8-12 Weeks Rehabilitation Potential Physical Therapy Diagnosis: MILD PELVIC FLOOR WEAKNESS, CORE WEAKNESS, DIASTASIS RECTI, C/O MILD LBP, LE TIGHTNESS AND CHIEF C/O PELVIC FLOOR PAIN LIMITING NORMAL ADL'S. Rehabilitation Potential: Questionable Anticipated Interventions Patient/Client Instruction: Educate patient on: Condition, Plan of Care and Risk Factors For the Purpose of:: To improve self management Therapeutic Exercise to Include: Strength training, Body mechanics, Postural training, Flexibilty training, Neuromotor development, Relaxation training and Dynamic Lumbar Stabilization For the Purpose of:: To decrease pain, To improve muscle performance and motor function, To increase tolerance to activity/condition/position, To improve ability of physical actions for home/community/work/leisure, To decrease soft tissue restriction, To increase flexibility/ROM, To improve health and function and To improve self management Manual Therapy Techniques to Include: Soft tissue mobilization For the Purpose of:: To decrease pain, To improve nutrient delivery to tissue and To improve muscle performance and motor function Text: Thank you for the opportunity to evaluate your patient. For Medicare and Medicare HMO plans, please review the plan of care and approve it. It will need to be FAXED BACK to us at [phone] for Medicare purposes. For Medicare only, by signing this I certify the plan of care. Please let me know if there are questions or concerns regarding this plan of care. Physician Signature : Date:
== END 2024-05-08 19:00 | disposition home or self-care (01) ==
LOC: PT 10:30
PROVIDERS: Referring Provider Obstetrics & Gynecology; Visit Provider Obstetrics & Gynecology
DX: O90.89 Other complications of the puerperium, not elsewhere classified (principal); R52 Pain, unspecified; R10.2 Pelvic and perineal pain
CPT/HCPCS: 97140; 97162; 97530